=== PATIENT | female | born 1965 | race American Indian/Alaskan Native ===

== ENCOUNTER 2018-05-02 09:54 | Outpatient (CLI) | payer BC ==
[2018-05-02] MEDS ORDERED: XYLOCAINE TOPICAL 4% TP ONE ×3 (10:12→11:41)
== END 2018-05-02 09:55 | disposition home or self-care (01) ==
LOC: WOUND 09:54
PROVIDERS: ATTEND Surgery
DX: T81.89XA Other complications of procedures, not elsewhere classified, initial encounter (principal); I10 Essential (primary) hypertension; Y83.8 Other surgical procedures as the cause of abnormal reaction of the patient, or of later complication, without mention of misadventure at the time of the procedure; Y92.89 Other specified places as the place of occurrence of the external cause
CPT/HCPCS: 11042; G0463

== ENCOUNTER 2018-05-10 08:47 | Outpatient (CLI) | payer BC ==
[2018-05-10] MEDS ORDERED: XYLOCAINE TOPICAL 2% 5ML ONE (08:52)
[2018-05-10] MEDS ORDERED: XYLOCAINE TOPICAL 2% 5ML TP ONE (09:04)
== END 2018-05-10 08:48 | disposition home or self-care (01) ==
LOC: WOUND 08:47
PROVIDERS: ATTEND Surgery
DX: T81.89XD Other complications of procedures, not elsewhere classified, subsequent encounter (principal); I10 Essential (primary) hypertension; Y83.8 Other surgical procedures as the cause of abnormal reaction of the patient, or of later complication, without mention of misadventure at the time of the procedure
CPT/HCPCS: 99214; G0463

== ENCOUNTER 2018-05-17 08:25 | Outpatient (CLI) | payer BC ==
[2018-05-17] MEDS ORDERED: XYLOCAINE TOPICAL 4% TP ONE ×2 (08:37→08:58)
== END 2018-05-17 08:26 | disposition home or self-care (01) ==
LOC: WOUND 08:25
PROVIDERS: ATTEND Surgery
DX: T81.89XD Other complications of procedures, not elsewhere classified, subsequent encounter (principal); I10 Essential (primary) hypertension; Y83.8 Other surgical procedures as the cause of abnormal reaction of the patient, or of later complication, without mention of misadventure at the time of the procedure

== ENCOUNTER 2018-05-24 08:32 | Outpatient (CLI) | payer BC ==
[2018-05-24] MEDS ORDERED: XYLOCAINE TOPICAL 4% TP ONE ×2 (08:48→12:01)
== END 2018-05-24 08:33 | disposition home or self-care (01) ==
LOC: WOUND 08:32
PROVIDERS: ATTEND Surgery
DX: T81.89XD Other complications of procedures, not elsewhere classified, subsequent encounter (principal); I10 Essential (primary) hypertension; Y83.8 Other surgical procedures as the cause of abnormal reaction of the patient, or of later complication, without mention of misadventure at the time of the procedure

== ENCOUNTER 2018-05-31 08:18 | Outpatient (CLI) | payer BC ==
[2018-05-31] MEDS ORDERED: XYLOCAINE TOPICAL 4% TP ONE ×2 (08:57→09:39)
[2018-05-31] MEDS ORDERED: AD OINTMENT TP ONE (09:07)
[2018-05-31] MEDS ORDERED: AD OINTMENT TP PRN (09:40)
== END 2018-05-31 08:19 | disposition home or self-care (01) ==
LOC: WOUND 08:18
PROVIDERS: ATTEND Surgery
DX: T81.89XD Other complications of procedures, not elsewhere classified, subsequent encounter (principal); I10 Essential (primary) hypertension; Y83.8 Other surgical procedures as the cause of abnormal reaction of the patient, or of later complication, without mention of misadventure at the time of the procedure
CPT/HCPCS: A6250